=== PATIENT | female | born 1955 | race Hispanic/Latino ===

== ENCOUNTER 2021-08-27 06:27 | Day surgery (SDC) | payer MEDICARE ==
[2021-08-27 07:05] LABS: Basophils # (Auto) 0.1 K/mm3 (0.0-0.1); Basophils % (Auto) 0.9 % (0.0-1.8); Eosinophils # (Auto) 0.1 K/mm3 (0.0-0.4); Eosinophils % (Auto) 1.7 % (0.0-4.3); Hematocrit 45.2 % (30.3-42.9); Hemoglobin 14.4 gm/dl (10.1-14.3); Lymphocytes # (Auto) 2.4 K/mm3 (1.2-5.4); Mean Corpuscular HGB Conc 32 % (30-34); Mean Corpuscular Volume 93 fl (79-97); Monocytes # (Auto) 0.6 K/mm3 (0.0-0.8); Platelet Count 269 K/mm3 (140-440); Red Blood Count 4.89 M/mm3 (3.65-5.03); Red Cell Distribution Width 13.8 % (13.2-15.2)
[2021-08-27 07:15] LABS: INR 0.91 (0.87-1.13); Partial Thromboplastin Time 26.7 Sec. (24.2-36.6)
[2021-08-27 07:18] LABS: Blood Urea Nitrogen 16 mg/dL (7-17); Calcium 9.4 mg/dL (8.4-10.2); Hemolysis Index 90
[2021-08-27 07:19] LABS: BUN/Creatinine Ratio 27
--- NOTE | 2021-08-27 07:31 | Anesthesia Consultation ---
Anesthesia Consult and Med Hx Date of service: 08/27/21 - Airway Anesthetic Teeth Evaluation: Dentures (upper and lower) ROM Head & Neck: Adequate Mental/Hyoid Distance: Adequate Mallampati Class: Class II Intubation Access Assessment: Probably Good - Pre-Operative Health Status ASA Pre-Surgery Classification: ASA2 Proposed Anesthetic Plan: MAC - Pulmonary Hx Smoking: Yes (1/2 p/day x 45 years) - Cardiovascular System Hx Hypertension: No (BP is elevated on the DOS) Hx Peripheral Vascular Disease: Yes (with claudication intermittent)
--- NOTE | 2021-08-27 07:31 | Anesthesia Day of Surgery ---
Anesthesia Day of Surgery - Day of Surgery Patient Examined: Yes Patient H&P Reviewed: Yes Patient is NPO: Yes
[2021-08-27] MEDS: SODIUM CHLORIDE 0.9% 1000 ML 1,000 ML IV SCH ×2 (07:44→15:36)
[2021-08-27] MEDS ORDERED: MIDAZOLAM 2 MG/2 ML INJ ONE (07:58)
[2021-08-27] MEDS ORDERED: HYDROmorphone 1 MG/1 ML INJ ONE (07:58)
[2021-08-27] MEDS ORDERED: propofoL 200 MG/20 ML VIAL IV ONE ×4 (07:59)
[2021-08-27] MEDS ORDERED: LIDOCAINE MPF (2%) 20 MG/1 ML VIAL 5 ML ONE (08:00)
[2021-08-27] MEDS ORDERED: HEPARIN 10,000 UNITS/10 ML VIAL ONE (08:15)
[2021-08-27] MEDS ORDERED: HEPARIN/NS 5000 UNIT/500ML 1,000 ML IR ONE (08:15)
[2021-08-27] MEDS ORDERED: LIDOCAINE (1%) 10 MG/1 ML VIAL 20 ML MDV ONE (08:16)
[2021-08-27] MEDS ORDERED: ceFAZolin/Water 2 GM/20 ML 2 GM/20 ML SYRINGE IV ONE (08:43)
[2021-08-27] MEDS ORDERED: HEPARIN/NS 5000 UNIT/500ML 500 ML IR ONE (09:39)
--- NOTE | 2021-08-27 09:58 | Short Stay Summary ---
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, short distance claudicati H&P: obtained from office - Allergies and Medications Current Medications: Allergies No Known Allergies Allergy (Verified 08/27/21 06:44) Home Medications Medication Instructions Recorded Confirmed Last Taken Type No Known Home Medications [No 08/27/21 08/27/21 Unknown History Reported Home Medications] Active Medications Sodium Chloride (Nacl 0.9% 1000 Ml) 1,000 mls @ 42 mls/hr IV DIRECT YENI Last Admin: 08/27/21 07:44 Dose: 42 mls/hr - Brief post op/procedure progress note Date of procedure: 08/27/21 Pre-op diagnosis: Right lower extremity claudication Post-op diagnosis: same Procedure: Aortogram, bilateral lower extremity angiogram Anesthesia: MAC Surgeon: NATALYA MARTINEZ Estimated blood loss: minimal Pathology: none Condition: stable - Disposition Condition at discharge: Good Disposition: 01 HOME / SELF CARE / HOMELESS Short Stay Discharge Plan Activity: advance as tolerated Weight Bearing Status: Weight Bear as Tolerated Diet: regular Wound: keep clean and dry, per your surgeon's advice Follow up with: PRIMARY CARE, [Primary Care Provider] - 7 Days
--- NOTE | 2021-08-27 10:04 | Operative Report ---
Operative Report Operative Report: Exam: Aortogram and bilateral lower extremity angiogram Clinical indication: Patient with a history of right common iliac artery occlusion, right external iliac artery occlusion and right common iliac artery stenosis with right lower extremity short distance claudication Date: 08/27/2021 Procedure: Following an explanation of the risk, benefits and alternatives; written informed consent was obtained. The patient was brought to the angiographic suite and placed in supine position on the examination table. Initial evaluation of the patient's groins demonstrated patent common femoral arteries bilaterally, the right is very diminutive secondary to underfilling. The patient's bilateral groins were prepped and draped in the usual sterile fashion. 2% lidocaine was used for anesthesia. Under ultrasound guidance, a 7 cm 21-gauge needle was advanced into the right common femoral artery. A 0.018 guidewire was advanced centrally. The needle was removed and the micro sheath placed. Access to the left groin common femoral artery was obtained in a similar fashion and a micro sheath placed. In the left groin, the 0.018 guidewire and trocar were removed and a 0.035 guidewire advanced into the abdominal aorta. The micro sheath was exchanged for a 5 Georgian vascular sheath. An Omni Flush catheter was advanced over the guidewire to the distal abdominal aorta. Contrast was injected. This demonstrates mild dilatation of the distal abdominal aorta. There is flush occlusion of the right common iliac artery. The left common iliac artery demonstrates stenosis at its origin. The left external and common femoral arteries are patent. Under fluoroscopy, a 0.035 guidewire was then advanced through the micro sheath on the right. The micro sheath was exchanged for a 5 [place]ian vascular sheath. Contrast was injected through the sheath. This demonstrates diminutive external iliac artery to the bifurcation with short segment filling of the internal iliac artery which is occluded 2 to 3 cm distal to its origin. A vertebral catheter was then advanced through the right sheath over the guidewi re. Varieties of guidewires and catheters were utilized in an attempt to cannulate the occluded common iliac artery on the right without significant success. A variety of guidewires were then utilized through the Omni Flush catheter from the right. The origin of the common iliac artery on the right was identified however, the guidewire and catheter would not advance any more distally secondary to lack of push ability through the Omni Flush catheter. At this point, the procedure was terminated. Completion angiogram was performed to demonstrate that the distal abdominal aorta and iliac vessels remain intact. The guidewires, catheters and sheaths were removed. Hemostasis was achieved using manual compression. The patient tolerated the procedure well. There were no immediate postprocedure complications. Sedation was provided by anesthesia services. Continuous cardiopulmonary monitoring was utilized. Impression: 1) Aortogram and bilateral lower extremity pelvic angiogram perform ed through Omni Flush catheter on the left and sheath in the common femoral artery on the right demonstrating flush occlusion of the right common iliac artery. Additionally, there is occlusion of the right internal iliac artery just distal to its origin and a portion of the external iliac artery. 2) Attempted revascularization of the common iliac artery from the right groin approach as well as the contralateral groin approach without significant success. The origin of the common iliac artery in the right was identified. 3) Given the fact that the origin of the common iliac artery on the right has been identified, the patient would benefit from additional attempts at revascularization from a radial approach as well as bilateral groin approach. This will be scheduled in 2 to 3 weeks. If this is unsuccessful, the patient may require a femorofemoral bypass
[2021-08-27] MEDS ORDERED: HYDROcodone/ACETAMINOPHEN 5-325 MG TAB PO ONE (11:07)
--- NOTE | 2021-08-27 13:31 | Post Anesthesia Evaluation ---
- Post Anesthesia Evaluation Patient Participated: Yes Airway Patent: Yes Stable Respiratory Function: Yes Nausea/Vomiting: No Temp > 96.8F: Yes Pain Manageable: Yes Adequeate Hydration: Yes Anesthesia Complications: No
[2021-08-27 14:52] VITALS: BP 112/73
[2021-08-27] MEDS ORDERED: ONDANSETRON 4 MG/2 ML INJ ONE (14:58)
[2021-08-27] MEDS ORDERED: ONDANSETRON 4 MG/2 ML INJ IV ONE (16:00)
== END 2021-08-27 15:50 | disposition home or self-care (01) ==
LOC: CATHLABREC 06:27
PROVIDERS: ATTEND Radiology Diagnostic Radiology
DX: I74.5 Embolism and thrombosis of iliac artery (principal); I87.1 Compression of vein; I70.213 Atherosclerosis of native arteries of extremities with intermittent claudication, bilateral legs; I71.4 Abdominal aortic aneurysm, without rupture; F17.210 Nicotine dependence, cigarettes, uncomplicated; Z20.822 Contact with and (suspected) exposure to COVID-19; Z82.5 Family history of asthma and other chronic lower respiratory diseases; Z98.890 Other specified postprocedural states
CPT/HCPCS: 36245; 36415; 75625; 75716; 80048; 85025; 85610; 85730; C1751; C1769; C1887; J0690; J1170; J1644; J2250; J2405; J2704; J3490; J7030; U0003; 96374; J7120; Q0162; Q9967

== ENCOUNTER 2021-09-10 07:48 | Day surgery (SDC) | payer MEDICARE ==
[2021-09-10] MEDS ORDERED: ceFAZolin/STERILE WATER 2 GM/20 ML SYRINGE IV NR (09:00)
[2021-09-10] MEDS ORDERED: SODIUM CHLORIDE 0.9% 1000 ML 1,000 ML IV SCH (09:00)
--- NOTE | 2021-09-10 09:08 | Anesthesia Day of Surgery ---
Anesthesia Day of Surgery - Day of Surgery Patient Examined: Yes Patient H&P Reviewed: Yes Patient is NPO: Yes
--- NOTE | 2021-09-10 09:08 | Anesthesia Consultation ---
Anesthesia Consult and Med Hx Date of service: 09/10/21 - Airway Anesthetic Teeth Evaluation: Dentures (upper and lower, glued in) ROM Head & Neck: Adequate Mental/Hyoid Distance: Adequate Mallampati Class: Class II Intubation Access Assessment: Probably Good - Pre-Operative Health Status ASA Pre-Surgery Classification: ASA3 Proposed Anesthetic Plan: MAC - Pulmonary Hx Smoking: Yes (1/2 p/day x 45 years) - Cardiovascular System Hx Hypertension: No (BP is elevated on the DOS) Hx Peripheral Vascular Disease: Yes (iliac arteries stenosis, with claudication intermittent) - Other Systems Hx Cancer: No
[2021-09-10 09:20] LABS: Hematocrit 39.9 % (30.3-42.9); Hemoglobin 13.4 gm/dl (10.1-14.3); Mean Corpuscular HGB Conc 34 % (30-34); Mean Corpuscular Volume 91 fl (79-97); Platelet Count 332 K/mm3 (140-440); Red Blood Count 4.36 M/mm3 (3.65-5.03); Red Cell Distribution Width 13.6 % (13.2-15.2)
[2021-09-10 09:34] LABS: Blood Urea Nitrogen 12 mg/dL (7-17); Calcium 8.7 mg/dL (8.4-10.2); Hemolysis Index 12
[2021-09-10 09:37] LABS: INR 0.93 (0.87-1.13)
[2021-09-10 09:55] LABS: BUN/Creatinine Ratio 17
[2021-09-10] MEDS ORDERED: KETAMINE/STERILE WATER 50 MG/ML SYRINGE ONE (11:34)
[2021-09-10] MEDS ORDERED: LIDOCAINE (2%) 20 MG/1 ML VIAL 50 ML MDV INFILTRATI ONE (11:48)
[2021-09-10] MEDS ORDERED: HEPARIN/NS 5000 UNIT/500ML 1,000 ML IR ONE (11:48)
[2021-09-10] MEDS ORDERED: SODIUM CHLORIDE 0.9% 100 ML ONE (11:52)
[2021-09-10] MEDS ORDERED: MIDAZOLAM 5 MG/5 ML INJ MDV IV ONE (11:52)
[2021-09-10] MEDS ORDERED: ceFAZolin/Water 2 GM/20 ML 2 GM/20 ML SYRINGE IV ONE (12:11)
[2021-09-10] MEDS: HEPARIN 10,000 UNITS/10 ML VIAL ONE ×2 (12:33→12:37)
[2021-09-10] MEDS ORDERED: NITROGLYCERIN SYRINGE 3 ML ONE (12:33)
--- NOTE | 2021-09-10 13:27 | Short Stay Summary ---
Short Stay Documentation Date of service: 09/10/21 - History Principal diagnosis: PVD with claudication right leg H&P: obtained from office - Allergies and Medications Current Medications: Allergies No Known Allergies Allergy (Verified 08/27/21 06:44) Home Medications Medication Instructions Recorded Confirmed Last Taken Type No Known Home Medications [No 08/27/21 08/27/21 Unknown History Reported Home Medications] Active Medications Cefazolin Sodium (Cefazolin/Sterile Water 2 Gm/20 Ml Syringe) 2 gm IV PREOP NR Stop: 09/10/21 20:00 Last Admin: 09/10/21 12:17 Dose: 2 gm Sodium Chloride (Nacl 0.9% 1000 Ml) 1,000 mls @ 100 mls/hr IV DIRECT YENI Last Admin: 09/10/21 12:18 Dose: 1,000 mls - Brief post op/procedure progress note Date of procedure: 09/10/21 Pre-op diagnosis: PVD with claudication right leg Post-op diagnosis: same Procedure: Diagnostic angiogram from bilateral groins and left wrist Anesthesia: MAC Surgeon: NATALYA MARTINEZ Estimated blood loss: minimal Pathology: none Condition: stable - Disposition Condition at discharge: Good Disposition: 01 HOME / SELF CARE / HOMELESS Short Stay Discharge Plan Activity: advance as tolerated Weight Bearing Status: Weight Bear as Tolerated Diet: regular Wound: keep clean and dry, per your surgeon's advice Follow up with: PRIMARY MD SYLVIA [Primary Care Provider] - 7 Days
--- NOTE | 2021-09-10 13:37 | Operative Report ---
Operative Report Operative Report: Exam: Diagnostic bilateral lower extremity angiography, left upper extremity angiography Clinical indication: Patient with a history of an occluded right common iliac artery, external iliac artery and internal iliac artery with stenosis of her left common iliac artery and bilateral lower extremity claudication right greater than left Date: 09/10/2021 Procedure: Following an explanation of the risks, benefits and alternatives; written informed consent was obtained. The patient was brought to the angiogr aphic suite and placed in supine position on the examination table. The patient passed her Lázaro's test. Her left wrist and bilateral groins were prepped and draped in the usual sterile fashion. 1% lidocaine was used for anesthesia. Under ultrasound guidance, the right common femoral artery was cannulated with a 7 cm 21-gauge needle. A 0.018 guidewire was advanced centrally. The needle was removed and a micro sheath placed. The 0.018 guidewire was exchanged for a 0.035 guidewire and the micro sheath exchanged for a 5 [place] vascular sheath. Access to the left was obtained in a similar fashion and an additional 5 [place] sheath placed on the left. An Omni Flush catheter was then advanced through the left sheath over the guidewire to the distal abdominal aorta. Contrast was injected for anatomic localization. This demonstrates complete occlusion of the right common iliac artery at its origin. A 0.035 guidewire and vertebral catheter were then advanced through the right sheath. Contrast was injected. This demonstrates patency of the common femoral artery which is diminutive and distal external iliac artery. The proximal external iliac artery is occluded. A variety of catheters and guidewires were utilized in an attempt to cross the lesion from a right approach. This was ultimately unsuccessful secondary to preferential subintimal planes. A variety of reverse curve catheters were then utilized from the left including a Sos Omni, Omni Flush and rim catheter in an attempt to cannulate the ostium of the l right common iliac artery. Ultimately, these were unsuccessful secondary to flush occlusion of the right common iliac artery. Decision was made to attempt an approach from the left radial artery. Under ultrasound guidance, a 3-1/2 cm 21-gauge needle was advanced in the left radial artery. There was prompt return of pulsatile blood. A 0.018 guidewire was advanced proximally. The needle was removed and a low-profile 4/5 [place] sheath placed over the guidewire. The trocar and guidewire were removed. Following the administration of a radial cocktail, a vertebral catheter and 0.035 guidewire were then advanced centrally under fluoroscopy. There is focal high-grade stenosis of the subclavian artery at the arch that would not allow the wire to pass. Contrast was injected in the axillary artery which demonstrates brisk flow down the arm from collateral vessels. This approach was therefore abandoned secondary to the high-grade stenosis. Additional attempts were then made from the bilateral groins in an attempt to cross the occluded common iliac artery on the right without success. Ultimately, no true luminal channel could be identified or cannulated. The wire would preferentially deviate in the subintimal planes with no communication to the true lumen. At this point, the catheters, guidewires and sheaths were removed and hemostasis achieved at the left wrist using manual compression and a pressure dressing. The sheath in the groin were left in place to be pulled in the Cable Braider recovery area following decrease in ACT level. The patient tolerated the procedure well. There were no immediate post procedure complications. Sedation was performed by anesthesia services. Continuous cardiopulmonary monitoring was utilized. Impression: Bilateral groin approach and left radial artery approach attempt to recannulate and flush occlusion of the right common iliac artery with extension into the external iliac artery without success. There is a high-grade stenosis of the left subclavian artery at its origin with the arch precluding passage of wire. The patient will likely need to undergo femorofemoral bypass to allow adequate blood flow to her right leg. At that time, she will need to undergo angioplasty and stent placement in the left common iliac artery secondary to significant stenosis within the left common iliac artery as well.
--- NOTE | 2021-09-10 14:24 | Post Anesthesia Evaluation ---
- Post Anesthesia Evaluation Patient Participated: Yes Airway Patent: Yes Stable Respiratory Function: Yes Nausea/Vomiting: No Temp > 96.8F: Yes Pain Manageable: Yes Adequeate Hydration: Yes Anesthesia Complications: No Block Receding Appropriately: Not Applicable Patient on Ventilator: No
[2021-09-10] MEDS ORDERED: HYDROcodone/ACETAMINOPHEN 5-325 MG TAB PO PRN (15:29)
[2021-09-10] MEDS ORDERED: ONDANSETRON 4 MG/2 ML INJ ONE (17:12)
[2021-09-10] MEDS ORDERED: hydrALAZINE 20 MG/1 ML INJ ONE (17:13)
[2021-09-10 18:12] VITALS: BP 163/62
[2021-09-10] MEDS ORDERED: ONDANSETRON 4 MG/2 ML INJ IV ONE (18:17)
[2021-09-10] MEDS ORDERED: hydrALAZINE 20 MG/1 ML INJ IV ONE (18:17)
[2021-09-10] MEDS ORDERED: MORPHINE 2 MG/1 ML INJ IV ONE (18:17)
== END 2021-09-10 18:45 | disposition home or self-care (01) ==
LOC: CATHLABREC 07:48
PROVIDERS: ATTEND Radiology Diagnostic Radiology
DX: I74.5 Embolism and thrombosis of iliac artery (principal); I87.1 Compression of vein; F17.210 Nicotine dependence, cigarettes, uncomplicated; I73.9 Peripheral vascular disease, unspecified; Z79.899 Other long term (current) drug therapy; Z82.5 Family history of asthma and other chronic lower respiratory diseases; Z98.890 Other specified postprocedural states
CPT/HCPCS: 36245; 36415; 75716; 76937; 80048; 85027; 85610; C1769; C1887; J0360; J0690; J1644; J1815; J2250; J2405; J2704; J3490; J7030; 96374; J7121; Q9967

== ENCOUNTER 2021-12-08 10:47 | Day surgery (SDC) | payer MEDICARE ==
[2021-12-08 12:00] LABS: Blood Urea Nitrogen 17 mg/dL (7-17); Calcium 9.4 mg/dL (8.4-10.2); Hemolysis Index 3
[2021-12-08] MEDS ORDERED: SODIUM CHLORIDE 0.9% 500 ML 500 ML IV SCH (12:00)
[2021-12-08 12:02] LABS: BUN/Creatinine Ratio 28
[2021-12-08 12:08] LABS: Basophils # (Auto) 0.1 K/mm3 (0.0-0.1); Basophils % (Auto) 0.7 % (0.0-1.8); Eosinophils # (Auto) 0.1 K/mm3 (0.0-0.4); Eosinophils % (Auto) 1.6 % (0.0-4.3); Hemoglobin 13.3 gm/dl (10.1-14.3); Lymphocytes # (Auto) 2.2 K/mm3 (1.2-5.4); Mean Corpuscular HGB Conc 32 % (30-34); Mean Corpuscular Volume 91 fl (79-97); Monocytes # (Auto) 0.5 K/mm3 (0.0-0.8); Monocytes % (Auto) 6.1 % (0.0-7.3); Platelet Count 275 K/mm3 (140-440); Red Cell Distribution Width 13.9 % (13.2-15.2)
[2021-12-08 12:14] LABS: INR 0.9 (0.87-1.13)
[2021-12-08 12:15] LABS: Partial Thromboplastin Time 26.7 Sec. (24.2-36.6)
[2021-12-08] MEDS ORDERED: HEPARIN/NS 5000 UNIT/500ML 1,000 ML IR ONE (13:34)
[2021-12-08] MEDS: fentaNYL 100 MCG/2 ML INJ ONE ×8 (13:50→15:52)
[2021-12-08] MEDS: MIDAZOLAM 2 MG/2 ML INJ ONE ×8 (13:50→15:52)
[2021-12-08] MEDS: LIDOCAINE (2%) 20 MG/1 ML VIAL 50 ML MDV INFILTRATI ONE ×2 (13:50→14:11)
[2021-12-08] MEDS: HEPARIN 10,000 UNITS/10 ML VIAL ONE ×3 (14:04→15:19)
[2021-12-08] MEDS ORDERED: LIDOCAINE (1%) 10 MG/1 ML VIAL 20 ML MDV ONE (14:22)
[2021-12-08] MEDS ORDERED: HEPARIN/NS 5000 UNIT/500ML 500 ML IR ONE (15:22)
[2021-12-08] MEDS ORDERED: CLOPIDOGREL 300 MG TAB ONE ×2 (15:51)
--- NOTE | 2021-12-08 16:11 | Short Stay Summary ---
Short Stay Documentation Date of service: 12/08/21 Narrative H&P: See H&P - History H&P: obtained from office - Allergies and Medications Current Medications: Allergies No Known Allergies Allergy (Verified 08/27/21 06:44) Home Medications Medication Instructions Recorded Confirmed Last Taken Type Aspirin EC [Halfprin EC] 81 mg PO DAILY 12/08/21 12/08/21 12/08/21 11:44 History 81 mg Hydralazine HCl 50 mg PO BID 12/08/21 12/08/21 12/08/21 11:45 History 50 mg amLODIPine 5 mg PO DAILY 12/08/21 12/08/21 12/08/21 11:45 History 5 mg Active Medications Sodium Chloride (Nacl 0.9% 500 Ml) 500 mls @ 50 mls/hr IV DIRECT YENI Last Admin: 12/08/21 13:52 Dose: 300 mls - Brief post op/procedure progress note Date of procedure: 12/08/21 Pre-op diagnosis: Peripheral Vascular Disease with Severe Right Lower Extremity Claudication Post-op diagnosis: same Procedure: 1. Ultrasound-Guided Access Right Common Femoral Artery 2. Ultrasound-Guided Access Left Common Femoral Artery 3. Angioplasty and Stent of Aorta with 11 x 29 Viabahn VBX Balloon Expandable Stent Graft 4. Angioplasty and Stent of Left Common Iliac Artery with 8 x 59 Viabahn VBX Balloon Expandable Stent Graft 5. Angioplasty and Stent of Right Common Iliac Artery with 8 x 59 Viabahn VBX Balloon Expandable Stent Graft 6. Angioplasty and Stent of Right External Iliac Artery with 8 x 10 Cm Viabahn Stent Graft and 8 x 100 [place] Balloon 7. Closure of Left Femoral Arteriotomy with Perclose ProStyle Closure Device 8. Closure of Right Femoral Arteriotomy with Perclose ProStyle Closure Device 9. Radiologic Supervision with Interpretation 10. Monitored Moderate Sedation (Total Anesthesia Time: 104 Minutes) Anesthesia: local, other (Monitored Moderate Sedation) Pathology: none Condition: stable - Disposition Condition at discharge: Good Disposition: 01 HOME / SELF CARE / HOMELESS Short Stay Discharge Plan Activity: other (No strenuous activity for 24 hours) Wound: remove dressing (In 24 hours), other (After removing dressing okay to shower and wash the wounds with soap and water but do not soak in water for 2 weeks.) Follow up with: WM BOND MD [Staff Physician] - 14 Days Prescriptions: HYDROcodone/APAP 7.5-325 [[place] 7.5/325] 1 each PO Q6HR PRN #30 tablet PRN Reason: Pain Clopidogrel [Plavix] 75 mg PO QDAY #90 tablet
[2021-12-08] MEDS ORDERED: HYDROcodone/ACETAMINOPHEN 5-325 MG TAB PO PRN (16:13)
--- NOTE | 2021-12-08 16:20 | Operative Report ---
Operative Report Operative Report: Date of Procedure: 12/08/2021 Pre-operative Diagnosis: Peripheral Vascular Disease with Claudication Post-operative Diagnosis: Same Procedure(s): 1. Ultrasound-Guided Access Right Common Femoral Artery 2. Ultrasound-Guided Access Left Common Femoral Artery 3. Angioplasty and Stent of Aorta with 11 x 29 Viabahn VBX Balloon Expandable Stent Graft 4. Angioplasty and Stent of Left Common Iliac Artery with 8 x 59 Viabahn VBX Balloon Expandable Stent Graft 5. Angioplasty and Stent of Right Common Iliac Artery with 8 x 59 Viabahn VBX Balloon Expandable Stent Graft 6. Angioplasty and Stent of Right External Iliac Artery with 8 x 10 Cm Viabahn Stent Graft and 8 x 100 [place] Balloon 7. Closure of Left Femoral Arteriotomy with Perclose ProStyle Closure Device 8. Closure of Right Femoral Arteriotomy with Perclose ProStyle Closure Device 9. Radiologic Supervision with Interpretation 10. Monitored Moderate Sedation (Total Anesthesia Time: 104 Minutes) Surgeon: Eugenio Hobbs M.D. Key Bed Installer: None Anesthesia: Local/Monitored Moderate Sedation Total Anesthesia Time: 104 Minutes EBL: Minimal Counts: Correct Complications: None Condition: Stable Specimen: None Indication: The patient is a 66-year-old female with a history of severe short distance claudication and known occlusion of her right common iliac artery with severe stenosis of her right external iliac artery. She is in need of intervention to relieve her symptoms. She was given the risk, benefits, and alternative proced ures and consented to the procedure. Angiographic Findings: The aortogram revealed that the distal aorta was ectatic approximately 2 cm above the bifurcation. The left common iliac artery , hypogastric artery, and external iliac artery were patent but appeared to be somewhat dilated as they provided collateral flow to the right lower extremity. There were multiple cross pelvic collaterals that eventually provided flow into the right external iliac artery. There was a short approximately 5 mm stump of the right common iliac artery and the remainder of the artery was occluded. The external iliac artery was diffusely stenotic with 50 to 75% stenosis. The common femoral artery appeared to be patent without significant flow-limiting stenosis. After intervention there appeared to be an adequate seal within the aortic stent graft. The left common iliac artery stent was patent with brisk flow. The right common iliac artery was patent with less than 10% residual stenosis. The right external iliac artery was patent with less than 15% residual stenosis and brisk flow of contrast into the right lower extremity. Description of Procedure: The patient was brought to the Forging Press Operator and laid in supine position. After timeout was performed bilateral groins were prepped and draped in normal sterile fashion. Ultrasound was used to identify the right common femoral artery and confirm patency. Once patency was confirmed the overlying skin and soft tissue was anesthetized lidocaine. An 11 blade was used to make a small stab incision and then a curved hemostat was used to bluntly dissect down to the anterior surface of the right common femoral artery under ultrasound guidance. A 21- gauge micropuncture needle was used with ultrasound guidance to access the right common femoral artery in retrograde fashion. A 0.018 micropuncture wire was advanced to the artery and after removing the needle a micropuncture sheath was placed by Seldinger technique. The dilator and wire were removed and a 0.035 J- wire was advanced to the artery. The micropuncture sheath was exchanged for 5 [place] sheath by Seldinger technique. I then used ultrasound to identify the left common femoral artery confirmed patency. The overlying skin and soft tissue was then anesthetized with lidocaine and an 11 blade was used to make a small stab incision. A curved hemostat was used with ultrasound guidance to bluntly dissect down to the anterior surface of the left common femoral artery and a 21-gauge micropuncture needle was used with ultrasound guidance to access the artery in retrograde fashion. A 0.018 micropuncture wire was advanced into the artery and after removing the needle a micropuncture sheath was placed by Seldinger technique. The dilator and wire were removed and a 0.035 J-wire was advanced into the artery. The micropuncture sheath was exchanged for a 5 [place] sheath by Seldinger technique. I made attempts to cross the occluded right common iliac artery with multiple wires and catheters however this was unsuccessful so I used a Sos Omni catheter and was able to engage the nose of the catheter into the stump of the right common iliac artery through the left groin access site. I then used a 0.035 floppy Glidewire and was able to engage the wire into the occluded artery. I was able to advance the wire into the artery and eventually was able to cross the occluded common iliac artery and advanced the wire into the right SFA. I removed the Sos Omni catheter and advanced a 0.035 trailblazer catheter over the wire and confirmed that I was within the true lumen with angiogram. I exchanged the floppy Glidewire for a 0.035 glide advantage wire and then exchanged my right femoral 5 [place] sheath for a 7 [place] 11 cm sheath. I was then able to use the glide advantage wire to cannulate the 7 [place] sheath. Once I had ensured that the crossing catheter and wire were within the sheath I remove the 7 [place] sheath and advanced the catheter and wire out of the femoral arteriotomy. I then removed the crossing catheter and advanced a 7 [place] sheath back into the right femoral arteriotomy and now had the patient "body flossed "across the occlusion. At this point I systemically heparinized the patient with 4000 units of heparin IV. I advanced the Sos Omni catheter up the right side and then the trailblazer up the left and herniated the catheters up into the aorta. Once I had both catheters in aorta I advanced wires through both catheters into the aorta to ensure that I was across the occlusion. I advanced a 0.018 V18 wire through the sauce Omni catheter and predilated the occluded right common iliac artery using a 4 x 100 [place] Balloon. I then used a catheter to exchange the wire for a glide advantage wire and also advanced a Glidewire advantage wire up the left side. I exchanged the 7 [place] sheath for an 8 [place] 23 cm catheter on the right and then used the 8 [place] 11 cm sheath on the left. I advanced a 8 [place] sheath into the aorta and then advanced a marker pigtail catheter into the aorta to accurately measure the distance between the bifurcation and an adequate seal area below the inferior mesenteric artery for placement of the aortic stent graft. Once this had been measured I remove the marker peak and advanced an 11 x 29 Viabahn VBX balloon expandable stent graft through the right side and into the aorta and deployed this into the aorta. I then advanced 8 x 59 Viabahn VBX balloon expandable stent grafts into each common iliac artery with approximately 1 cm of overlap into the aortic stent graft and simultaneously deployed the stent grafts. After deploying the common iliac stent grafts I exchanged my glide advantage wire on the right for a V 18 wire and then placed an 8 x 10 cm Viabahn stent graft into the external iliac artery ensuring that spared a large branch that had previously provided collateral flow through the pelvis. I postdilated the stent graft with an 8 x 100 [place] balloon. This resulted in less than 10% residual stenosis within the right common iliac artery and less than 15% residual stenosis within the right external leg artery. The aortic stent graft had a adequate seal and no evidence of endoleak. At this point PerClose ProStyle Closure Devices were used to close each respective femoral arteriotomy after removing the sheaths. Sterile dressings were then applied to the entry sites and the patient was transported to the recovery area in stable condition.
[2021-12-08] MEDS ORDERED: ONDANSETRON 4 MG/2 ML INJ IV ONE (16:47)
[2021-12-08 17:45] VITALS: BP 160/52
== END 2021-12-08 19:01 | disposition home or self-care (01) ==
LOC: CATHLABREC 10:47
PROVIDERS: ATTEND Surgery Vascular Surgery
DX: I70.213 Atherosclerosis of native arteries of extremities with intermittent claudication, bilateral legs (principal); I71.4 Abdominal aortic aneurysm, without rupture; I74.5 Embolism and thrombosis of iliac artery; F17.210 Nicotine dependence, cigarettes, uncomplicated; I10 Essential (primary) hypertension; Z79.899 Other long term (current) drug therapy; Z79.82 Long term (current) use of aspirin; Z98.890 Other specified postprocedural states; Z82.5 Family history of asthma and other chronic lower respiratory diseases
CPT/HCPCS: 36415; 37221; 37223; 37236; 76937; 80048; 85025; 85610; 85730; 99156; 99157; C1725; C1760; C1769; C1874; C1887; C1894; J1644; J2250; J2405; J3010; J3490; J7040; 96374; Q9967